=== PATIENT | female | born 1965 | race Caucasian/White ===

== ENCOUNTER 2018-10-13 21:14 | Emergency (ER) | payer OTHER ==
--- NOTE | 2018-10-13 21:48 | EDM.PDOC ---
ED HPI GENERAL MEDICAL PROBLEM - General Chief Complaint: Respiratory Problem Stated Complaint: COUGHING ALOT ASTHMA ISSUES Time Seen by Provider: 10/13/18 21:33 Source of Information: Reports: Patient History Limitations: Reports: No Limitations - History of Present Illness INITIAL COMMENTS - FREE TEXT/NARRATIVE: 53 y/o female presents to ER with cc cough and congestion for the past 3 weeks. She states she is asthmatic and is having to use her nebulizer treatments more frequently. States when the symptoms started she had chills and fever. She reports she was getting better until 3 days ago when the symptoms didn't respond to nebulizer treatments. She reports her daughter has been sick with strep throat a week ago. She reports she is from [place]. Onset Date: 09/21/18 Duration: Getting Worse Location: Reports: Chest Severity: Mild Improves with: Reports: Other (nebulizer treatments) Worsens with: Reports: None Associated Symptoms: Reports: Cough, Fever/Chills. Denies: Chest Pain - Related Data Allergies Allergy/AdvReac Type Severity Reaction Status Date / Time codeine Allergy Rash Verified 10/13/18 21:31 Home Meds: Home Meds Albuterol [Ventolin HFA] 2 puff INH Q4H PRN 10/13/18 [History] Azithromycin 750 mg PO DAILY 5 Days #5 tablet 10/13/18 [Rx] Benzonatate [Tessalon Perle] 100 mg PO TID PRN 10 Days #20 capsule 10/13/18 [Rx] Budesonide/Formoterol [Symbicort 80-4.5 MCG] 1 puff INH BID 10/13/18 [History] Levothyroxine 112 mcg PO ACBREAKFAST 10/13/18 [History] predniSONE 20 mg PO DAILY 5 Days #10 tab 10/13/18 [Rx] Past Medical History Respiratory History: Reports: Asthma Endocrine/Metabolic History: Reports: Hypothyroidism Social & Family History - Tobacco Use Smoking Status *Q: Never Smoker - Caffeine Use Caffeine Use: Reports: Coffee, Soda - Recreational Drug Use Recreational Drug Use: No ED ROS GENERAL - Review of Systems Review Of Systems: See Below Constitutional: Reports: Fever, Chills HEENT: Reports: No Symptoms Respiratory: Reports: Wheezing, Cough Cardiovascular: Denies: Chest Pain Endocrine: Reports: No Symptoms GI/Abdominal: Reports: No Symptoms : Reports: No Symptoms Musculoskeletal: Reports: No Symptoms Skin: Reports: No Symptoms Neurological: Reports: No Symptoms Psychiatric: Reports: No Symptoms Hematologic/Lymphatic: Reports: No Symptoms Immunologic: Reports: No Symptoms ED EXAM, GENERAL - Physical Exam Exam: See Below Exam Limited By: No Limitations General Appearance: Alert, WD/WN, No Apparent Distress Ears: Normal External Exam, Normal Canal, Hearing Grossly Normal, Normal TMs Nose: Normal Inspection, Normal Mucosa, No Blood Throat/Mouth: Normal Inspection, Normal Lips, Normal Teeth, Normal Gums, Normal Oropharynx, Normal Voice, No Airway Compromise Head: Atraumatic, Normocephalic Neck: Normal Inspection, Supple, Non-Tender, Full Range of Motion Respiratory/Chest: No Respiratory Distress, Normal Breath Sounds, No Accessory Muscle Use, Chest Non-Tender, Other (diminished left anterior lower base. ) Cardiovascular: Normal Peripheral Pulses, Regular Rate, Rhythm, No Edema, No Gallop, No JVD, No Murmur, No Rub Back Exam: Normal Inspection, Full Range of Motion Extremities: Normal Inspection, Normal Range of Motion, Non-Tender, No Pedal Edema, Normal Capillary Refill Neurological: Alert, Oriented, Normal Cognition, Normal Gait, Normal Reflexes, No Motor/Sensory Deficits Psychiatric: Normal Affect, Normal Mood Skin Exam: Warm, Dry, Intact, Normal Color, No Rash Lymphatic: No Adenopathy Course - Vital Signs Last Recorded V/S: Last Vital Signs Temp 97.6 F 10/13/18 21:28 Pulse 80 10/13/18 21:28 Resp 18 10/13/18 21:28 BP 148/88 H 10/13/18 21:28 Pulse Ox 94 L 10/13/18 21:28 - Orders/Labs/Meds Orders: Active Orders 24 hr Category Date Time Status CXR [Chest 2V] [CR] Stat Exams 10/13/18 21:40 Taken - Re-Assessments/Exams Free Text/Narrative Re-Assessment/Exam: 10/13/18 22:23 Her preliminary x-ray reveals questionable infiltrates in the left lower base. I will treat with Levaquin for outpatient therapy. I'll discharge home with a short course of prednisone and Tessalon Perles for cough. Struck to patient to follow up with her PCP as needed. Instructed patient to return to emergency room for any new or worsening symptoms. Departure - Departure Time of Disposition: 22:24 Disposition: Home, Self-Care 01 Clinical Impression: Pneumonia Qualifiers: Pneumonia type: due to unspecified organism Laterality: left Lung location: lower lobe of lung Qualified Code(s): J18.1 - Lobar pneumonia, unspecified organism - Discharge Information *PRESCRIPTION DRUG MONITORING PROGRAM REVIEWED*: Not Applicable *COPY OF PRESCRIPTION DRUG MONITORING REPORT IN PATIENT EUN: Not Applicable Prescriptions: Azithromycin 750 mg PO DAILY 5 Days #5 tablet Benzonatate [Tessalon Perle] 100 mg PO TID PRN 10 Days #20 capsule PRN Reason: Cough predniSONE 20 mg PO DAILY 5 Days #10 tab Instructions: Community-Acquired Pneumonia, Adult Referrals: Sonam Bales PA-C [Primary Care Provider] - Forms: ED Department Discharge Additional Instructions: Your x-ray revealed questionable infiltrate in the left lower lobe. With her history and symptoms I'm going to treat to his seizures and pneumonia. I will be discharged home with Levaquin take medication but is all gone. You have been given a prescription for prednisone to take in the morning as directed and use Tessalon Perles as needed for cough. Follow up with her PCP. Return to the emergency room for any new or acutely worsening symptoms. - My Orders Last 24 Hours: My Active Orders 10/13/18 21:40 CXR [Chest 2V] [CR] Stat - Assessment/Plan Last 24 Hours: My Active Orders 10/13/18 21:40 CXR [Chest 2V] [CR] Stat
--- NOTE | 2018-10-14 06:20 | CR ---
Chest: Two views of the chest were obtained. Comparison: No prior chest x-ray. Heart size and mediastinum are within normal limits. Lungs are clear. Bony structures appear within normal limits for the patient's age. Impression: 1. Nothing acute is appreciated on two-view chest x-ray. Diagnostic code #1
== END 2018-10-13 22:47 | disposition home or self-care (01) ==
LOC: JD.ED 21:14
DX: J18.1 Lobar pneumonia, unspecified organism (principal); J45.909 Unspecified asthma, uncomplicated; E03.9 Hypothyroidism, unspecified; Z88.5 Allergy status to narcotic agent; Z79.899 Other long term (current) drug therapy
CPT/HCPCS: 71046; 71046-26; 99283; 99283-25